=== PATIENT | female | born 1990 | race Caucasian/White ===

== ENCOUNTER 2024-03-08 09:05 | Day surgery (SDC) | payer BC, OTHER ==
[~2024-03-08] VITALS: Ht 170.2 cm; Wt 152.0 kg
[~2024-03-08 09:05] MED LIST: ONDA8TAB6 PO
[2024-03-08] MEDS ORDERED: CITA20TA24 PO (09:30)
[2024-03-08] MEDS ORDERED: MONT5TAB80 PO (09:31)
[2024-03-08] MEDS ORDERED: CETI10CA PO (09:32)
[2024-03-08 09:44] VITALS: BP 118/69; PULSE 76; RESP 18
[2024-03-08] MEDS ORDERED: fentaNYL/PF 50MCG/1 ML 2ML syringe ONE (10:21)
[2024-03-08] MEDS ORDERED: MIDAZolam 1 MG/ML 5ML VIAL ONE (10:21)
[2024-03-08] MEDS ORDERED: diphenhydrAMINE 50 mg/ml inj ONE (10:21)
[2024-03-08 10:58] VITALS: BP 129/76; PULSE 66; RESP 16; O2SAT 98
[2024-03-08 11:08] VITALS: BP 133/78; PULSE 64; RESP 16; O2SAT 98
[2024-03-08 11:18] VITALS: BP 126/71; PULSE 59; RESP 16; O2SAT 99
[2024-03-08 11:28] VITALS: BP 122/72; PULSE 61; RESP 18; O2SAT 97
== END 2024-03-08 11:35 | disposition home or self-care (01) ==
LOC: GI LAB 09:05
PROVIDERS: ATTEND Internal Medicine Gastroenterology
DX: K92.1 Melena (principal); K64.8 Other hemorrhoids
CPT/HCPCS: 45378; 99152; J1200; J2250; J3010; J7030; Z7512; A4620